=== PATIENT | male | born 1940 | race Caucasian/White ===

== ENCOUNTER 2017-03-12 12:26 | Emergency (ER) | payer OTHER, MEDICAID ==
[2017-03-12 15:03] LABS: BASOPHIL % 1.3 % (0-2); PLATELET COUNT 153 x10^3mcL (130-400); RED CELL DISTRIBUTION WIDTH 14.2 % (11.5-14.5)
[2017-03-12 15:14] LABS: CALCIUM 8.5 mg/dL (8.5-10.1); CARBON DIOXIDE 29.7 mmol/L (21-32); CHLORIDE SERUM 105 mmol/L (98-107); GLUCOSE SERUM 96 mg/dL (74-106); POTASSIUM SERUM 4.1 mmol/L (3.5-5.1); SODIUM SERUM 140 mmol/L (136-145)
[2017-03-12 15:27] LABS: ALKALINE PHOSPHATASE 91 U/L (46-116); ALT/SGPT 18 U/L (16-63); AST/SGOT 36 U/L (15-37); BILIRUBIN TOTAL 0.6 mg/dL (0.20-1.00); HDL CHOLESTEROL 47 mg/dL (40-60); T4(THYROXINE) 7.7 ug/dL (4.7-13.3); TOTAL PROTEIN, SERUM 6.2 g/dL (6.4-8.2)
[2017-03-12 15:31] LABS: ALBUMIN 2.9 g/dL (3.4-5.0); CHOLESTEROL 206 mg/dL (<200)
[2017-03-12 15:49] LABS: microscopic required? NO
[2017-03-12 16:09] LABS: UA SPECIFIC GRAVITY 1.025 (1.005-1.035); urine erythrocyte NEGATIVE (NEGATIVE)
[2017-03-12 17:16] VITALS: BP 132/67
== END 2017-03-12 17:16 | disposition home or self-care (01) ==
LOC: ED 12:26
PROVIDERS: Emergency Medicine
DX: J20.9 Acute bronchitis, unspecified (principal); E46 Unspecified protein-calorie malnutrition; I10 Essential (primary) hypertension
CPT/HCPCS: 36600; 82962; 83880; 94150; J2930; J7030; J7613; J7644